=== PATIENT | female | born 1995 ===

== ENCOUNTER 2021-11-28 14:16 | Outpatient (CLI) | payer OTHER | END 2021-11-28 16:06 | disposition home or self-care (01) | LOC: PRENATAL 14:16 | PROVIDERS: ATTEND Obstetrics & Gynecology Maternal & Fetal Medicine | DX: O35.0XX0 Maternal care for (suspected) central nervous system malformation in fetus, not applicable or unspecified (principal); O30.90 Multiple gestation, unspecified, unspecified trimester; O35.3XX0 Maternal care for (suspected) damage to fetus from viral disease in mother, not applicable or unspecified; O26.879 Cervical shortening, unspecified trimester; Z3A.24 24 weeks gestation of pregnancy ==

== ENCOUNTER 2022-01-11 15:43 | Outpatient (CLI) | payer OTHER | END 2022-01-11 17:30 | disposition home or self-care (01) | LOC: PRENATAL 15:43 | PROVIDERS: ATTEND Obstetrics & Gynecology Maternal & Fetal Medicine | DX: O35.9XX0 Maternal care for (suspected) fetal abnormality and damage, unspecified, not applicable or unspecified (principal); O30.90 Multiple gestation, unspecified, unspecified trimester; Z3A.30 30 weeks gestation of pregnancy ==